=== PATIENT | female | born 1980 | race Hispanic/Latino ===

== ENCOUNTER 2017-12-16 09:55 | Emergency (ER) | payer BC ==
[~2017-12-16] VITALS: Ht 165.1 cm; Wt 99.8 kg
[2017-12-16] MEDS ORDERED: HYDROCODONE/APAP 10MG-325MG TAB PO ONE (10:30)
--- NOTE | 2017-12-16 11:07 | Diagnostic Imaging Report ---
PROCEDURE:X-RAY RIGHT LOWER LEG COMPARISON:None. INDICATIONS:FALL FINDINGS: Acute comminuted fracture of the distal diaphysis of the right tibia. Minimal anterior and lateral displacement of the distal fracture fragments. Acute spiral fracture of the distal fibula at the level of the plafond. Otherwise, no acute fracture or dislocation. The bones are well-mineralized. Soft tissue swelling is present in the ankle, most prominent in the lateral malleolus. CONCLUSION: Acute fractures of the distal fibula and tibia as above. Dictated by: Thuan Beltran M.D. on 12/16/2017 at 11:07 Electronically approved by: Thuan Beltran M.D. on 12/16/2017 at 11:07
--- NOTE | 2017-12-16 11:20 | Diagnostic Imaging Report ---
PROCEDURE:KNEE RIGHT THREE VIEWS COMPARISON:None. INDICATIONS:FALL, ANKLE AND KNEE PAIN FINDINGS: There are no fractures, dislocations, lytic or blastic lesions. The bones are well-mineralized. The soft-tissues are unremarkable. CONCLUSION: No traumatic pathology. Dictated by: Zelda Wakefield M.D. on 12/16/2017 at 11:20 Electronically approved by: Zelda Wakefield M.D. on 12/16/2017 at 11:20
--- NOTE | 2017-12-16 11:26 | Diagnostic Imaging Report ---
PROCEDURE:X-RAY RIGHT ANKLE, COMPLETE TECHNIQUE: INDICATION:Pain. COMPARISON:None. FINDINGS: Acute comminuted fracture of the distal diaphysis of the left tibia with extension into the tibiotalar joint. The major fracture fragments are in near anatomic alignment. Minimal anterior and lateral displacement of the distal fracture fragments. Acute minimally displaced fracture the posterior malleolus. Acute spiral fracture of the distal tibia at the level of the plafond and syndesmosis. The major fracture fragments are in near-anatomic alignment. No other fracture is visualized. No expansile lytic or sclerotic lesion. Bone mineralization is within normal limits. Soft tissue swelling is present around the ankle. CONCLUSION: Acute trimalleolar fracture of the right ankle as above. Dictated by: Thuan Beltran M.D. on 12/16/2017 at 11:26 Electronically approved by: Thuan Beltran M.D. on 12/16/2017 at 11:26
--- NOTE | 2017-12-16 11:29 | Diagnostic Imaging Report ---
PROCEDURE:X-RAY RIGHT FOOT, COMPLETE COMPARISON:None. INDICATIONS:FALL FINDINGS: Fractures of the distal tibia and fibula. There are no fractures, dislocations, lytic or blastic lesions in the foot. The bones are well-mineralized. The soft-tissues are unremarkable. CONCLUSION: Fractures of the distal tibia and fibula. Please see the dictation of the ankle for full clinical details. Dictated by: Thuan Beltran M.D. on 12/16/2017 at 11:30 Electronically approved by: Thuan Beltran M.D. on 12/16/2017 at 11:30
== END 2017-12-16 12:29 | disposition home or self-care (01) ==
LOC: ER 09:55
DX: S82.851A Displaced trimalleolar fracture of right lower leg, initial encounter for closed fracture (principal); Y93.89 Activity, other specified; Y92.008 Other place in unspecified non-institutional (private) residence as the place of occurrence of the external cause
CPT/HCPCS: 99284

== ENCOUNTER 2018-06-28 08:02 | Emergency (ER) | payer BC ==
[~2018-06-28] VITALS: Ht 165.1 cm; Wt 99.8 kg
[2018-06-28 08:51] VITALS: BP 122/81
== END 2018-06-28 09:03 | disposition home or self-care (01) ==
LOC: ER 08:02
DX: T16.2XXA Foreign body in left ear, initial encounter (principal); E11.9 Type 2 diabetes mellitus without complications; F41.9 Anxiety disorder, unspecified; K21.9 Gastro-esophageal reflux disease without esophagitis
CPT/HCPCS: 99282